=== PATIENT | male | born 1945 | race Caucasian/White ===

== ENCOUNTER → 2017-08-29 | Outpatient (CLI) | payer OTHER ==
[~2017-08-29] MED LIST: AMITRIPTYLINE H10 M3 PO; B-12500 MCG PO; EXCEDRIN CAPLE1 EACH PO; FOSAMAX 70 MG T70 MG PO; MOBIC7.5 MG PO; NORCO 5-325 TA1 EACH PO; PREDNISONE 1 MG1 M1 PO; PREDNISONE 5 MG5 MG PO; TYLENOL EXTRA500 MG PO; VITAMIN B-12500 MCG PO; tylenol PO
== END ==
LOC: M.MRI 12:55
DX: M47.892 Other spondylosis, cervical region (principal); M48.02 Spinal stenosis, cervical region; F32.9 Major depressive disorder, single episode, unspecified; M31.6 Other giant cell arteritis

== ENCOUNTER → 2017-09-06 | Outpatient (CLI) | payer OTHER ==
--- NOTE | 2017-09-12 14:40 | PAINCON ---
[address] [address] PAIN MANAGEMENT CONSULTATION Name: JON MOTT Room: [facility]#: [id number] Admission: 09/06/17 Attend Phys: Jennifer Gonzales MD Discharge: Date of : 47 Report #: [id number] THIS REPORT FOR: //name// CC: Tucker Gonzales DATE OF SERVICE: 09/06/2017 PRIMARY CARE PHYSICIAN: Tucker Tate M.D. CHIEF COMPLAINT: Pain in the neck with pulling down the side of my neck and pain in the area of the right eye. HISTORY OF PRESENT ILLNESS: The patient is a 72-year-old gentleman who has been referred to the Pain Clinic for chronic neck pain. He rates it as a 5/10. States that the pain is in the back of his head. Radiates from his neck up to the lateral portion of his head. Also, has some sensation of discomfort in the area of the eye. Denies any significant trauma to this area. He has not had surgery on his neck. Denies any recent whiplash. Notes that his pain is worse when he moves his head, sometimes way blinking his eyes. Has tried Tylenol in the past with little benefit. Pain has been quite problematic since 06/2016. Has used prednisone on a regular basis 5 mg. ALLERGIES: No known drug allergies. CURRENT MEDICATIONS: Prednisone 5 mg, Flomax 70 mg once weekly, Tylenol 500 mg 4 times per day. Medications discontinued in the past, Effexor 37.5 mg, vitamin D, folic acid, prednisone 10 mg tablets. 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 PAST SURGICAL HISTORY: Colon surgery in 12/2016, bleeding into the colon. 1979, appendectomy with peritonitis. SOCIAL HISTORY: He is retired, has not worked since 2012. Does smoke cigarettes, has smoked for 50 years. Denies use of alcoholic beverages. PAIN CLINIC ASSESSMENT: Denies history of osteoarthritis or rheumatoid arthritis. PHYSICAL EXAMINATION: VITAL SIGNS: Blood pressure 125/68, heart rate 54, respiratory rate 16, [place] [address] PAIN MANAGEMENT CONSULTATION Name: JON MOTT Room: [facility]#: [id number] Admission: 09/06/17 Attend Phys: Jennifer Gonzales MD Discharge: Date of : 47 Report #: [id number] air saturation 95%, temperature 98.2. Height 5 feet 9 inches, weight 187 pounds, BMI is 27. Pain intensity 3/10. Fall risk. The patient has not fallen in the last 3 months. Blood thinner. The patient is not on a blood thinner. Hypertension. The patient is not being treated for hypertension. Opioid therapy greater than 6 weeks. The patient is not on opioid therapy. RISK ASSESSMENT TOOL. Functional assessment tool. 1. Recreational drug use. The patient denies use of recreational drugs. 2. Tobacco: The patient has a 50-year history of tobacco 1 pack per day at this juncture. 3. Alcohol: The patient did drink on a daily basis, stopped one year ago. LABORATORY DATA: 1. MRI of the cervical spine dated 08/29/2017 reveals C1-C2 unremarkable except for narrowing of the anterior atlanto-occipital joint. 2. C2/C3 unremarkable. There is no disk bulge protrusion or stenosis. Facet joints were unremarkable. 3. C3/C4 unremarkable. There is no disk bulge protrusion or stenosis. The facet joints are unremarkable. No C4 nerve root impingement is visualized. 4. C4-C5. Disk desiccation. There is mild posterior disk bulging. There is effacement of the ventral thecal sac. The AP diameter of the central canal is mildly narrowed to 10.5 mm. There is no neuroforaminal narrowing. There is mild left-sided degenerative facet disease. 5. C5/C6 disk space narrowing. There is posterior disk bulging, which effaces the ventral thecal sac. AP diameter of the central canal is narrowed to 10.5. There is bilateral neuroforaminal nerve narrowing, right greater than left with effacement of the right nerve root. There is bilateral degenerative facet disease also present, which is also greater on the right contributing to effacement of the posterior aspect of the nerve root. 6. C6-C7 disk space narrowing. There is no disk bulge or protrusion. 7. C7-T1. Minimal posterior disk bulging. There is a left-sided intraspinal synovial cyst, which causes left lateral recess narrowing and effacement of the dorsal root of the C8 nerve root. The synovial cyst measures 4 mm transverse x 6 mm cranial caudal. PHYSICAL EXAMINATION: GENERAL: The patient is a well-developed white male. He appears his stated age. The patient is alert and oriented x 3. Affect, the patient's affect appears appropriate. Speech is fluent. HEENT: Head is normocephalic, atraumatic. Extraocular muscles intact. Hearing is within normal limits. Buccal membranes are moist. The patient has pain and discomfort to palpation in the area of the left and right occipital areas. Pain is more problematic on the right occipital area. Palpation in this area does [facility] [address] [place] [address] PAIN MANAGEMENT CONSULTATION Name: JON MOTT Room: [facility]#: [id number] Admission: 09/06/17 Attend Phys: Jennifer Gonzales MD Discharge: Date of : 47 Report #: [id number] cause worsening of pain and discomfort. The patient feels that there is similar pain with pain radiating in the area of the right eye. Left and right lateral rotation, left and right lateral flexion and extension were not really very problematic. Muscle strength is judged to be 5/5 in the major muscle groups in the upper extremity. The patient has some pain and discomfort in the area of the right levator scapulae and trapezius. Deep tendon reflexes are +1 for the biceps bilaterally. Muscles are judged to be 5/5 for the major muscle groups in the upper extremity. HEART: Regular rate. ABDOMEN: Nontender. LUNGS: Clear to auscultation without bruits. EXTREMITIES: Lower extremity is judged to be 5/5 for the major muscle groups. Muscle bulk in the lower extremities is within normal limits. The patient is able to walk, stand on his toes, stand on his heels. IMPRESSION: 1. Occipital neuralgia on the right with pain radiating to the right side of the head with some pain and discomfort and perceived in the area of the right eye. 2. History of tobacco use 50 pack years, 1 pack per day. 3. Osteoporosis. RECOMMENDATIONS: We discussed treatment options with the patient. Risks and benefits of the occipital nerve block were discussed. The patient is having pains which are not inconsistent with occipital neuralgia. Some side this patient have had suffered trauma that can then exhibits pain and discomfort in the occipital area. He denies any trauma history, but he does give a clinical picture that is consistent with occipital neuralgia. We will proceed with an injection in the occipital area on return to the Pain Clinic. We will proceed with an injection when the patient returns to the Pain Clinic. We would like to thank you for letting us participate in his care. We hope he continues to improve. <ELECTRONICALLY SIGNED> By: Jennifer Gonzales MD 09/12/17 1440 0017 [id number]. Alex Gonzales MD /[facility]
== END ==
LOC: M.PC 01:33
DX: M81.0 Age-related osteoporosis without current pathological fracture (principal); M54.2 Cervicalgia; H57.11 Ocular pain, right eye; Z87.891 Personal history of nicotine dependence

== ENCOUNTER → 2017-09-13 | Outpatient (CLI) | payer OTHER ==
--- NOTE | 2017-09-26 08:21 | PAINCON ---
[address] [address] PAIN MANAGEMENT CONSULTATION Name: JON MOTT Room: [facility].#: [id number] Admission: 09/13/17 Attend Phys: Jennifer Gonzales MD Discharge: Date of : 47 Report #: [id number] THIS REPORT FOR: //name// CC: Tucker Gonzales DATE OF SERVICE: 09/13/2017 FOLLOWUP COMPLAINT: Here for an injection for the right neck pain that is pulling on the right side and uncomfortable in the area of the right eye. FOLLOWUP HISTORY: The patient is a 72-year-old gentleman who has been seen in the pain clinic because of chronic pain. He rates the pain as 4/10 today. It has been chronic and ongoing for greater than a year. He denied any trauma to this area. Denied any history of neck pain. Denied any rewhiplash. Notes that his pain overall could be more problematic on certain days, but was constant problems since 06/2016. He has been on prednisone on a regular basis of 5 mg per day. ALLERGIES: No known drug allergies. MEDICATIONS: Prednisone 5 mg per day, Flomax 70 mg weekly, Tylenol 500 mg 4 times a day p.r.n. Discontinued medication in the past have included Effexor 37.5 mg, vitamin D, folic acid, prednisone 10 mg tablets. PAIN CLINIC ASSESSMENT: 1. The patient is not being treated for osteoarthritis or history of rheumatoid arthritis. 2. Height 5 feet 9 inches, weight 186 pounds, BMI is 27. 3. VITAL SIGNS: Blood pressure 126/72, heart rate 62, respiratory rate 16, room air saturation 96%, temperature is 98. 4. Pain intensity 10. 5. Fall risk: The patient has not fallen in the last 3 months. 6. Blood thinner: The patient is not on a blood thinner. 7. History of hypertension: The patient is not being treated for hypertension. 8. Opioid therapy: The patient is not on a chronic opioid therapy. 9. Risk assessment tool. 10. Functional assessment tool. 11. Recreational drug use: The patient denies use of recreational drugs. 12. Tobacco: The patient has a 50-year history of tobacco and smokes 1 pack of cigarettes per day at this juncture. 13. Alcohol: The patient denies drinking alcohol on a regular basis, stopped about a year ago. PHYSICAL EXAMINATION: [place] [address] PAIN MANAGEMENT CONSULTATION Name: JON MOTT Room: [facility]#: [id number] Admission: 09/13/17 Attend Phys: Jennifer Gonzales MD Discharge: Date of : 47 Report #: [id number] GENERAL: The patient is a well-developed white male. He appears his stated age. He is alert and oriented x 3. His affect is appropriate. Speech is fluent. HEENT: Head is normocephalic, atraumatic. Extraocular eye muscles intact. Hearing is within normal limits. Moist buccal membranes. Sclerae are nonicteric. NECK: Without adenopathy. Right and left occipital areas show some pain and discomfort to palpation. Palpation in the right occipital area causes a reproduction of the pain the patient has sometimes felt in the right eye area. Left and right lateral rotation, left and right lateral flexion and extension were not problematic. Muscle strength is judged to be 5/5 in the major muscle groups in the upper extremities. Deep tendon reflexes are +1 at the biceps bilaterally. HEART: Regular rate. ABDOMEN: Nontender. LUNGS: Clear to auscultation. EXTREMITIES: Lower judged to be 5/5 in the major muscle groups with symmetry and appropriate muscle bulk. The patient is able to walk on his toes and heels without problems. IMPRESSION: 1. Occipital neuralgia on the right with pain radiating to the right side of the head with some pain and discomfort perceived in the area of the right eye. 2. History of tobacco use, 25-[id number]-bveq history, 1 pack per day. 3. Osteoporosis. RECOMMENDATIONS: We discussed treatment options with the patient. Risks and benefits of occipital nerve block were again discussed. Possible complications were reviewed. They could include but are not limited to infection, increased muscle soreness, headache, worsening of pain and the patient elects to proceed. PROCEDURE NOTE: The patient was placed in the prone position. The occipital portion of his head was sterilely prepped with a chlorhexidine solution. It was allowed to dry. A 25-gauge needle was then advanced into the area of discomfort. The patient stated that this did reproduce his discomfort. Total of 8 mL of 0.5% bupivacaine and 40 mg triamcinolone was injected. The patient tolerated the procedure well. There were no complications. He was then escorted to the pain recovery room. There was no bleeding. He remained there for an appropriate amount of time. He will follow up in the future as needed. We would like to thank you for letting us participate in his care. We hope he continues to improve. <ELECTRONICALLY SIGNED> By: Jennifer Gonzales MD 09/26/17 0821 1158 [id number]. Alex Gonzales MD /PMT
== END | disposition home or self-care (01) ==
LOC: M.PC 03:52
DX: M54.81 Occipital neuralgia (principal); M81.0 Age-related osteoporosis without current pathological fracture; Z79.891 Long term (current) use of opiate analgesic; Z79.899 Other long term (current) drug therapy

== ENCOUNTER → 2017-10-18 | Outpatient (CLI) | payer OTHER ==
--- NOTE | 2017-10-24 08:18 | PAINCON ---
[address] [address] PAIN MANAGEMENT CONSULTATION Name: TIERAJON W Room: [facility].#: [id number] Admission: 10/18/17 Attend Phys: Jennifer Gonzales MD Discharge: Date of : 47 Report #: [id number] THIS REPORT FOR: //name// CC: Tucker Gonzales DATE OF SERVICE: 10/18/2017 FOLLOWUP COMPLAINT: Still having the pain in the back of the head and into the eye area. FOLLOWUP HISTORY: The patient is a 72-year-old gentleman who has been seen in the pain clinic in the past because of pain and discomfort involving the occipital area as well as some pain, which radiates into the right occipital area of his eye. This has been going on for quite a number of years. Pain has been problematic. He underwent an occipital nerve injection in the Pain Clinic. He notes that for a couple of weeks his pain was significantly better. He then noticed some recurrence of his pain. Continues to have pain and discomfort. Rates it as a 2/10 at this juncture. He states that he has been seen by a neurologist. There are scheduling a MRI. The patient does feel quite frustrated secondary to the chronicity of his pain. He has seen several doctors and feels like he has relief is temporize/elusive. He continues to take prednisone 5 mg. He states that he is taking this because it was thought to have giant cell arteritis. Has been taking Excedrin as well as B12. Continues to use Fosamax as well. Denies any bowel or bladder dysfunction. He denies any upper extremity nerve/muscular changes. He has returned to the pain clinic for evaluation. The patient has past medical history of depression. ALLERGIES: No known drug allergies. MEDICATIONS: Prednisone 5 mg a day, Fosamax 70 mg weekly, Tylenol 500 mg t.i.d. Discontinued medications have included Effexor 37.5 mg, vitamin D, folic acid, prednisone 10 mg tablets pain clinic. PAIN CLINIC ASSESSMENT: 1. The patient is not being treated for osteoarthritis and does not have a history of rheumatoid arthritis. 2. Height 5 feet 8 inches, weight 182 pounds, BMI is 26. 3. VITAL SIGNS: Blood pressure 138/61, 138/75, heart rate 75, respiratory rate 16, room air saturation 97%, temperature 98.2. 4. Pain intensity is 2/10. 5. Fall risk. The patient has not fallen in the last 3 months. 6. Blood thinner. The patient is not on a blood thinner. 7. History of hypertension. The patient is not being treated for hypertension. 8. Opioid therapy. The patient is not [place] [address] PAIN MANAGEMENT CONSULTATION Name: TIERASTEPHANTimmy Lamb Room: [facility]#: [id number] Admission: 10/18/17 Attend Phys: Jennifer Gonzales MD Discharge: Date of : 47 Report #: [id number] 9. Risk assessment tool. 10. Functional assessment tool. 11. Recreational drug use. The patient denies use of recreational drugs. 12. Tobacco. The patient has a 50-year history of tobacco and smokes 1 pack of cigarettes per day. 13. Alcohol. The patient denies use of alcohol on a regular basis. PHYSICAL EXAMINATION: GENERAL: The patient is a well-developed white male. He appears his stated age. He is alert and oriented x 3. His affect is appropriate. Speech is fluent. HEENT: Normocephalic, atraumatic. Extraocular eye muscles are intact. The patient has some soreness in the posterior area on the right occipital area. Palpation in this area does reproduce a portion of his discomfort. Buccal membranes are moist. Sclerae are nonicteric. NECK: Without adenopathy, right and left occipital areas had some slight discomfort more problematic on the right side. HEART: Regular rate, normal S1, S2. ABDOMEN: Nontender. LUNGS: Clear to auscultation without rales or rhonchi. EXTREMITIES: Judged to be 5/5 in the major muscle groups in the upper area with bulk and symmetry and without sensory changes. The patient is able to walk on his heels and toes without problems. IMPRESSION: 1. Occipital neuralgia on the right side with pain radiating to the right side of his head with some discomfort proceed beyond the right eye. 2. History of tobacco use, 77-lfnt-lonn history. 3. Osteoporosis. RECOMMENDATIONS: We discussed treatment options with the patient. At this juncture, we will proceed with another occipital injection. Risks and benefits of the procedure were again reviewed with the patient. They could include but are not limited to infection, increased muscle soreness headache, bleeding, worsening of pain. The patient elects to proceed. PROCEDURE NOTE: The patient was placed in the prone position. His neck was sterilely prepped with a Betadine solution, 5% bupivacaine, using a 25-gauge needle was then advanced into the area of the right occipital area. The patient states that this did reproduce pain. A total of 8 mL of 0.5% bupivacaine and 40 mg triamcinolone was injected. The patient tolerated the procedure well. There were no complications. He remained in the Pain Clinic for an appropriate amount of time. The patient will try Elavil, amitriptyline 10 mg 1 p.o. at bedtime and note its efficacy. We have reviewed reminded him of the possibility of becoming somewhat orthostatic with use of this medication. He should not use it if [place] [address] PAIN MANAGEMENT CONSULTATION Name: JON MOTT Room: [facility]#: [id number] Admission: 10/18/17 Attend Phys: Jennifer Gonzales MD Discharge: Date of : 47 Report #: [id number] A script for Elavil 10 mg 1 p.o. at bedtime has been written. The patient can increase this after he calls us. He will call us in 2 weeks. We may consider increasing this to 20 mg at bedtime. The patient will also take Mobic and nonsteroidal anti-inflammatory medication. We would like to thank you for letting us participate in his care. We hope he continues to improve. <ELECTRONICALLY SIGNED> By: Jennifer Gonzales MD 10/24/17 0818 1434 [id number]. Alex Gonzales MD /[facility]
== END | disposition home or self-care (01) ==
LOC: M.PC 01:55
DX: M54.81 Occipital neuralgia (principal); M81.0 Age-related osteoporosis without current pathological fracture; Z87.891 Personal history of nicotine dependence

== ENCOUNTER → 2017-12-13 | Outpatient (CLI) | payer OTHER ==
--- NOTE | 2017-12-20 15:18 | PAINCON ---
[address] [address] PAIN MANAGEMENT CONSULTATION Name: JON MOTT [id number] Admission: 12/13/17 Attend Phys: Jennifer Gonzales MD Discharge: Date of : 47 Report #: [id number] THIS REPORT FOR: //name// CC: Tucker Gonzales DATE OF SERVICE: 12/13/2017 FOLLOWUP COMPLAINT: Return of occipital headache. The pain was better after the block. FOLLOWUP HISTORY: The patient is a 72-year-old gentleman who has been followed in the pain clinic. He suffers from occipital neuralgia. He has undergone occipital nerve blocks. He noted improvement in his pain. He had some problems with GI bleed. He was hospitalized on 11/19/2017 because of this. He states that his hemoglobin level went down to 9. He has noted some improvement and said that it was greater than 9.6. He has noted some worsening of his headache with neck stiffness. He has returned to the pain clinic for an occipital nerve block. He rates his pain as a 4/10. Overall, he continues to feel somewhat weak. He states that he lost quite a bit of blood. He feels that this may have been a result of constipation and forceful straining. Overall, things are going reasonably well. He has stopped taking the Excedrin. He is not taking meloxicam. Notes that his pain is exacerbated when he is leaning his head backwards on his pillow. Discomfort when sitting in a chair. ALLERGIES: No known drug allergies. MEDICATIONS: Prednisone 5 mg daily, Fosamax 70 mg weekly, Tylenol 500 mg 1 p.o. t.i.d. Discontinued medications include Effexor 37.5 mg, vitamin D, folic acid, Mobic 7.5 mg, of amitriptyline 10 mg, Excedrin caplets. PAIN CLINIC ASSESSMENT: 1. The patient is not being treated for osteoarthritis, but does have some history of rheumatoid arthritis. 2. Height 5 feet 8 inches, weight 178 pounds, BMI is 26. 3. Vital Signs: Blood pressure 122/58, heart rate 64, respiratory rate 16, room air saturation 99, temperature 98.3. Pain intensity 10/02. 4. Fall risk. The patient has not fallen in the last 3 months. 5. Blood thinner. The patient is not on a blood thinning medication. 6. Hypertension. The patient has not been treated for hypertension. 7. Opioid therapy. The patient is not on a chronic opioid therapy regimen. 8. Risk assessment tool. 9. Functional assessment tool. 10. Recreational drug use. The patient denies use of recreational drugs. 11. Tobacco: The patient has a 50-year history of tobacco, smokes 1 pack of [facility] [address] [place] [address] PAIN MANAGEMENT CONSULTATION Name: JON MOTT Room: [facility]#: [id number] Admission: 12/13/17 Attend Phys: Jennifer Gonzales MD Discharge: Date of : 47 Report #: [id number] cigarettes per day. 12. Alcohol: The patient denies use of alcoholic beverages on a regular basis. PHYSICAL EXAMINATION: GENERAL: The patient is a well-developed, well-nourished white male. He appears his stated age. He is alert and oriented x 3. His affect is appropriate. Speech is fluent. HEENT: Normocephalic, atraumatic. Extraocular eye muscles intact. Sclerae nonicteric. The patient does have some redness in the medial canthal area of his right eye. He states that this improves after the occipital nerve block. NECK: Without adenopathy, has some right as well as left occipital discomfort. Right side is most problematic at this juncture. HEART: Regular rate, normal S1, S2. ABDOMEN: Nontender. LUNGS: Clear to auscultation without rales or rhonchi. EXTREMITIES: Upper extremity judged to be 5/5 for the major muscle groups with symmetry and without sensory change. Lower extremity 5/5 for the muscle bulk without neurologic complaints. IMPRESSION: 1. Occipital neuralgia on the right side with pain radiating to the right side of his head with some discomfort beyond the right eye. 2. History of tobacco use, 17-ypuy-ctxy history. 3. Osteoporosis. 4. Recent GI bleed, first GI bleed approximately 1 year ago. RECOMMENDATIONS: We discussed treatment options with the patient. Risks and benefits of an occipital nerve block were reviewed. They include, but are not limited to infection, increased muscle soreness, headache, bleeding, worsening of pain, no improvement in pain. The patient is aware of the risks and would like to proceed with treatment of a right occipital block. PROCEDURE: The patient was placed in the prone position. He was in the treatment area. His neck was sterilely prepped with chlorhexidine solution. The 0.25% bupivacaine using a 25-gauge needle with 40 mg triamcinolone was used to inject the right occipital area. The patient states after palpation this was the area of discomfort. Total of 8 mL 0.25% bupivacaine with 40 mg triamcinolone was injected. The patient tolerated the procedure well. There were no complications. He remained in the pain clinic for an appropriate amount of time. He will follow up in the future as needed. We will continue to monitor for possible GI bleeding. We would like to thank you for letting us participate in his care. We hope he continues to improve. <ELECTRONICALLY SIGNED> By: Jennifer Gonzales MD 12/20/17 1518 1440 1924N. Alex Gonzales MD /[facility]
== END | disposition home or self-care (01) ==
LOC: M.PC 04:00
DX: M54.81 Occipital neuralgia (principal); G89.29 Other chronic pain; M81.0 Age-related osteoporosis without current pathological fracture; Z87.891 Personal history of nicotine dependence; Z87.19 Personal history of other diseases of the digestive system; Z79.899 Other long term (current) drug therapy; Z98.890 Other specified postprocedural states

== ENCOUNTER → 2018-01-15 | Outpatient (CLI) | payer OTHER ==
--- NOTE | 2018-01-23 14:16 | PAINCON ---
[address] [address] PAIN MANAGEMENT CONSULTATION Name: JON MOTT Room: [facility] Khris#: [id number] Admission: 01/15/18 Attend Phys: Jennifer Gonzales MD Discharge: Date of : 49 Report #: [id number] THIS REPORT FOR: //name// CC: Tucker Gonzales DATE OF SERVICE: 01/15/2018 CHIEF COMPLAINT: Return of the occipital headache. It improved after the injections. FOLLOWUP HISTORY: The patient is a 72-year-old gentleman who has been followed in the pain clinic because of occipital neuralgia. He has undergone occipital nerve blocks. He finds that these improve his pain by 100%. He has noticed a worsening of pain and discomfort. He does have a history of GI bleed. He has not had problems with this in a while. He states that he has some problem with a tag in his right ear. He is not sure whether or not this has any bearing on his pain and discomfort in the occipital area. He also has noted some problem with a lump in his leg. He states that he is being evaluated with a CT/possible MRI for evaluation of this item. In order to undergo the procedure, he needs to be off his steroid medication. He feels that the occipital pain improves after each injection. He would like to proceed with another injection. He rates it as a 5-6 at this juncture. He has received 100% improvement after the injections in the past. ALLERGIES: No known drug allergies. MEDICATIONS: Prednisone 5 mg daily, Flomax 70 mg weekly, Tylenol 500 mg 1 p.o. t.i.d.. Medications, which have been discontinued include Effexor 37.5 mg, vitamin D, folic acid, Mobic, amitriptyline 10 mg, and Excedrin caplets. PAIN CLINIC ASSESSMENT: 1. The patient is not being treated for osteoarthritis. He does have some history of rheumatoid arthritis. 2. Height 5 feet 8 inches, weight 174 pounds, BMI is 25.8. 3. Vital signs: Blood pressure 124/73, heart rate 71, respiratory rate 16, room air saturation 97%, temperature 98.4. 4. Pain intensity 5-6/10. 5. Fall risk. The patient has not fallen in the past 3 months. 6. Blood thinner. The patient is not on a blood thinning medication. 7. Hypertension. The patient has not been treated for hypertension. 8. Opioid therapy. The patient is not on a chronic opioid medication regimen. 9. Risk assessment tool, low. 10. Functional assessment tool. 11. Recreational drug use. The patient denies use of recreational drugs. 12. Tobacco: The patient has a 50-year history of tobacco, smokes 1 pack of [facility] [address] [place] [address] PAIN MANAGEMENT CONSULTATION Name: TIERASTEPHANTimmy Lamb Room: [facility]#: [id number] Admission: 01/15/18 Attend Phys: Jennifer Gonzales MD Discharge: Date of : 47 Report #: [id number] cigarettes per day at this juncture. 13. Alcohol: The patient denies use of alcoholic beverages on a regular basis. PHYSICAL EXAMINATION: GENERAL: The patient is a well-developed, well-nourished white male. He appears his stated age. He is alert and oriented x 3. His affect is appropriate. Speech is fluent. HEENT: Normocephalic, atraumatic. Extraocular eye muscles intact. Sclerae nonicteric. The patient has pain and discomfort, which radiates across the right temporal area, posterior portion of his right eye and when the right occipital area was palpated. Neck: Without JVD, adenopathy, or bruits. HEART: Regular rate. S1, S2. ABDOMEN: Nontender. LUNGS: Clear to auscultation without rales or rhonchi. EXTREMITIES: Upper extremities, judged to be 5/5 for the major muscle groups without sensory change. Lower extremities 5/5 for the muscle. Lower extremities, the patient has some complaint of a nodule in his left thigh area. IMPRESSION: 1. Occipital neuralgia on the right, improved with occipital blocks with 100% resolution of pain. 2. History of tobacco, 50-year smoking history. 3. History of osteoporosis. 4. History of gastrointestinal bleed. 5. Tumor/nodule in the right leg being evaluated by primary physician. RECOMMENDATIONS: We discussed treatment options with the patient. Risks and benefits of the procedure were again reviewed. Possible complications, which could include but are not limited to infection, increased muscle soreness, worsening of the symptoms, no improvement in symptoms. The patient elects to proceed. PROCEDURE NOTE: The patient was placed in the prone position. His neck was sterilely prepped with a chlorhexidine solution, which was allowed to dry. The right occipital area was palpated. The patient notes pain and discomfort in the occipital area. A 25-gauge needle was then advanced into the area of discomfort. A total of 6 mL of 0.5% bupivacaine and 40 mg triamcinolone was injected. The patient tolerated the procedure well. There were no complications. He remained in the pain clinic for an appropriate amount of time. He will follow up in the future as needed. He may be a candidate for Botox treatment. We will investigate the possibility of this in the future. <ELECTRONICALLY SIGNED> By: Jennifer Gonzales MD 01/23/18 1416 1101 1455N. Alex Goznales MD /nt
== END | disposition home or self-care (01) ==
LOC: M.PC 04:44
DX: M54.81 Occipital neuralgia (principal); G89.29 Other chronic pain; F17.210 Nicotine dependence, cigarettes, uncomplicated; Z98.890 Other specified postprocedural states; Z87.19 Personal history of other diseases of the digestive system; Z87.310 Personal history of (healed) osteoporosis fracture; Z79.899 Other long term (current) drug therapy

== ENCOUNTER → 2018-02-07 | Outpatient (CLI) | payer OTHER ==
--- NOTE | 2018-03-01 17:38 | PAINCON ---
[address] [address] PAIN MANAGEMENT CONSULTATION Name: JON MOTT Room: [facility] Khris#: [id number] Admission: 02/07/18 Attend Phys: Jennifer Gonzales MD Discharge: Date of : 49 Report #: [id number] THIS REPORT FOR: //name// CC: Tucker Gonzales DATE OF SERVICE: 02/07/2018 FOLLOWUP HISTORY: The right side after the injection is about 99% better. Left side has still some areas of soreness. I would like to have another injection. The patient is a 72-year-old gentleman who has been followed in the pain clinic because of occipital neuralgia. He has undergone occipital nerve blocks. He has noted that these have been quite helpful and improved his pain by about 100%. Over the last few weeks, he has noted a recurrence of pain and discomfort in the left side. Right side continues to be about 99% improved. He would like to undergo another injection in the left side. He finds that these have been quite beneficial in decreasing the amount of headaches that he has been experiencing. He has had no complication from the injections. He continues to take Tylenol and has used prednisone in the past. He has returned to the pain clinic with a desire of undergoing a left occipital nerve block to help with the chronic abdominal pain that he usually feels. He rates his pain as a 2 today. Oftentimes, it can rise to a level of 6. ALLERGIES: No known drug allergies. CURRENT MEDICATIONS: Prednisone 5 mg daily, Fosamax 70 mg weekly, Tylenol 500 mg t.i.d., medications have been discontinued include Effexor 37.5 mg, folic acid, vitamin D, Mobic, amitriptyline 10 mg, Excedrin caplets. PAIN CLINIC ASSESSMENT: 1. The patient is not being treated for osteoarthritis. He does have some history of rheumatoid arthritis. 2. Height 5 feet 8 inches, weight 169 pounds, BMI is 25. 3. Vital signs: Blood pressure 132/71, heart rate 71, respiratory rate 16, room air saturation 97%, temperature 98.1. Pain score 2/10 at this juncture. 4. Fall risk. The patient has not fallen in the last 3 months. 5. Blood thinner. The patient is not on a blood thinning medication. 6. Hypertension. The patient is not being treated for hypertension. 7. Opioid therapy. The patient is not on a chronic opioid medication regimen. 8. Risk assessment tool, low for use of opioid. 9. Functional assessment tool. 10. Recreational drug use. The patient denies use of recreational drugs. 11. Tobacco: The patient has a 50-year history of tobacco and smokes 1 pack of cigarettes per day at this juncture. 12. Alcohol: The patient denies use of alcoholic beverages [place] [address] PAIN MANAGEMENT CONSULTATION Name: STEPHAN MOTTTimmy Lamb Room: [facility]#: [id number] Admission: 02/07/18 Attend Phys: Jennifer Gonzales MD Discharge: Date of : 49 Report #: [id number] PHYSICAL EXAMINATION: GENERAL: The patient is a well-developed, well-nourished white male. He appears his stated age. He is alert and oriented x 3. His affect is appropriate. Speech is fluent. HEENT: Normocephalic, atraumatic. Extraocular muscles intact. Sclerae nonicteric. The patient has some pain and discomfort in the back of his occipital area with radiation to the left temporal area and involvement of his left eye when this area was palpated. NECK: Without JVD, adenopathy, or bruits. HEART: Regular rate. S1, S2. ABDOMEN: Nontender. LUNGS: Clear to auscultation without rales or rhonchi. EXTREMITIES: Upper extremity, judged to be 5/5 for the major muscle groups in the upper extremity. Sensory is within normal limits. Lower extremity, sensory within normal limits. Muscle strength 5/5 for the major muscle groups. The patient does have some complaint of some discomfort on his left thigh area. IMPRESSION: 1. Left occipital neuralgia. Right improved after the injection by 100%. 2. History of tobacco 50 years smoking history. 3. History of osteoporosis. 4. History of gastritis and gastrointestinal bleed. 5. Tumor/nodule in the right leg being evaluated by primary physician. RECOMMENDATIONS: We discussed treatment options with the patient. Risks and benefits of an occipital neuralgia, occipital injection were again discussed. Possible complications of the procedure, which could include infection, increased muscle soreness, no improvement in pain, worsening of pain, seizure were explained. The patient elects to proceed. PROCEDURE NOTE: The patient was placed in the prone position. His neck was then sterilely prepped with a chlorhexidine solution, which was allowed to dry. After appropriate placement and the trigger point was identified. A 25-gauge needle was then advanced into the area of discomfort. The patient states that this did reproduce his discomfort. A total of 8 and 8 mL of 0.5% bupivacaine and 40 mg triamcinolone was injected. The patient tolerated the procedure well. He remained in the pain clinic for an appropriate amount of time. There was no bleeding. He will follow up in the future as needed. We would like to thank you for letting us participate in his spare in his care. Hopefully, he continues to improve. <ELECTRONICALLY SIGNED> By: Jennifer Gonzales MD 03/01/18 1738 1504 1818N. Alex Gonzales MD /nt
== END | disposition home or self-care (01) ==
LOC: M.PC 05:01
DX: M54.81 Occipital neuralgia (principal)

== ENCOUNTER 2018-02-20 10:12 | Emergency (ER) | payer OTHER ==
[~2018-02-20] VITALS: Ht 172.7 cm; Wt 73.0 kg
[~2018-02-20 10:12] MED LIST changes: -NORCO 5-325 TA1 EACH PO; -VITAMIN B-12500 MCG PO
[2018-02-20 10:56] LABS: CALCIUM 9.3 mg/dL (8.5-10.1); CREATININE 0.9 mg/dL (0.6-1.3); POTASSIUM 4.1 mmol/L (3.5-5.1)
[2018-02-20 10:58] LABS: URIC ACID* 4.5 mg/dL (2.6-7.2)
[2018-02-20] MEDS ORDERED: NORCO 5-325 TA1 EACH PO (11:31)
[2018-02-20 11:41] VITALS: BP 131/71
[2018-02-28] MEDS ORDERED: VITAMIN B-12500 MCG PO (15:18)
[2018-02-28] MEDS ORDERED: EXCEDRIN CAPLE1 EACH PO (15:18)
[2018-03-28] MEDS ORDERED: NORCO 5-325 TA1 EACH PO (08:25)
== END 2018-02-20 11:42 | disposition home or self-care (01) ==
LOC: M.ERS 10:12
PROVIDERS: Emergency Medicine Emergency Medical Services
DX: M25.521 Pain in right elbow (principal); R22.31 Localized swelling, mass and lump, right upper limb; G89.29 Other chronic pain; R51 Headache; F17.210 Nicotine dependence, cigarettes, uncomplicated

== ENCOUNTER → 2018-02-21 | Outpatient (CLI) | payer OTHER ==
[~2018-02-21] MED LIST changes: +NORCO 5-325 TA1 EACH PO; +VITAMIN B-12500 MCG PO
== END ==
LOC: M.RAD 14:37
DX: M25.421 Effusion, right elbow (principal); M77.11 Lateral epicondylitis, right elbow

== ENCOUNTER → 2018-02-28 | Outpatient (CLI) | payer OTHER ==
--- NOTE | 2018-04-08 10:00 | PAINCON ---
[address] [address] PAIN MANAGEMENT CONSULTATION Name: STEPHAN MOTTTimmy Lamb Room: [facility].#: [id number] Admission: 02/28/18 Attend Phys: Jennifer Gonzales MD Discharge: Date of : 49 Report #: [id number] THIS REPORT FOR: //name// CC: Tucker Gonzales DATE OF SERVICE: 02/28/2018 CHIEF COMPLAINT: Occipital head pain. HISTORY OF PRESENT ILLNESS: The patient is a 72-year-old gentleman who has been followed in the Pain Clinic because of chronic episodes of occipital neuralgia. He has undergone injections without occipital blocks and gleaned benefits from these. He returns today indicating that his pain has overall been helped, but he is having a recurrence of pain, particularly today in the left occipital area. He would like to proceed with a trigger point injection to help decrease his chronic pain and discomfort. He has had no complication from the last injection. He did note some improvement in his headache pain. Overall, he gets greater than 90% improvement after the injections. ALLERGIES: No known drug allergies. MEDICATIONS: Current medications are prednisone 5 mg, Flomax 70 mg weekly, and Tylenol 500 mg t.i.d. Medications discontinued have included Effexor 37.5, folic acid, vitamin D, Mobic, amitriptyline 10 mg, and Excedrin caplets. PAIN CLINIC ASSESSMENT: 1. The patient is not being treated for osteoarthritis. He does have some history of rheumatoid arthritis with involvement of his elbow. 2. Height 5 feet 8 inches, weight 169 pounds, BMI is 25. 3. Vital signs: Blood pressure 132/69, heart rate 70, respirations 16, room air saturation 96%, temperature 98. 4. Pain score: 4/6. 5. Fall risk: The patient has not fallen in the last 3 months. 6. Blood thinner: The patient is not on a blood thinning medication. 7. Hypertension: The patient is not being treated for hypertension. 8. Opioid therapy: The patient is not on a chronic opioid medication regimen. 9. Risk assessment tool low for opioid use. 10. Functional assessment tool. 11. Recreational drug use: The patient denies use of recreational drugs. 12. Tobacco: The patient has a 50-year history of tobacco and continues to smoke 1 pack of cigarettes per day. 13. Alcohol: The patient denies use of alcoholic beverages. PHYSICAL EXAMINATION: [place] [address] PAIN MANAGEMENT CONSULTATION Name: JON MOTT Room: [facility]#: [id number] Admission: 02/28/18 Attend Phys: Jennifer Gonzales MD Discharge: Date of : 49 Report #: [id number] GENERAL: The patient is a well-developed, well-nourished white male. He appears his stated age. He is alert and oriented x 3. His affect is appropriate. Speech is fluent. HEENT: Normocephalic, atraumatic. Extraocular eye muscles intact. Sclerae nonicteric. The patient does have some pain and discomfort in the left occipital area. Palpation does reproduce pain and discomfort in his lateral temporal area. Also, he notes some discomfort in the area of his left eye. NECK: Without JVD, adenopathy or bruits. HEART: Regular rate. S1 and S2. ABDOMEN: Nontender. LUNGS: Clear to auscultation without rales or rhonchi. MUSCULOSKELETAL: Upper extremity strength is judged to be 5/5 for the major muscle groups in the upper extremity. Sensory is within normal limits. Lower extremity sensory is within normal limits. Muscle strength in the lower extremity is 5/5 for the major muscle groups. The patient has some discomfort in the left thigh area. IMPRESSION: 1. Left occipital neuralgia. 2. History of tobacco, [id number] smoking. 3. Osteoporosis. 4. History of gastritis and gastrointestinal bleed. 5. Tumor/nodule removed from right leg by primary care physician. 6. Onset of increased pain and discomfort involving the elbow. RECOMMENDATIONS: We discussed treatment options with the patient. Risks and benefits of an occipital nerve block were discussed. They include but are not limited to infection, increased muscle soreness, worsening of pain, no improvement in pain, seizures from injection of the medication. The patient elects to proceed. PROCEDURE NOTE: The patient was placed in the prone position. A pillow was placed under his shoulders to improve positioning. His neck was sterilely prepped with a chlorhexidine solution, this was allowed to dry. The occipital nerve area was identified. Near the greater occipital nerve, a 25-gauge needle was advanced. The patient states this reproduced his discomfort. Total of 40 mg triamcinolone and 8 mL of 0.5% bupivacaine was injected. The patient tolerated the procedure well. There were no complications. He remained in the Pain Clinic for an appropriate amount of time. His pain decreased. The patient will call us if he has any concerns. [address] [address] PAIN MANAGEMENT CONSULTATION Name: JON MOTT Room: [facility] DIANE Hernandez.#: [id number] Admission: 02/28/18 Attend Phys: Jennifer Gonzales MD Discharge: Date of : 49 Report #: [id number] I would like to thank you for letting us participate in his care. We hope he continues to improve. <ELECTRONICALLY SIGNED> By: Jennifer Gonzales MD 04/08/18 1000 [id number] 0507N. Alex Gonzales MD /nt
== END ==
LOC: M.PC 04:41
DX: M54.81 Occipital neuralgia (principal); Z79.899 Other long term (current) drug therapy

== ENCOUNTER → 2018-03-28 | Outpatient (CLI) | payer OTHER ==
--- NOTE | 2018-05-08 15:49 | PAINCON ---
[address] [address] PAIN MANAGEMENT CONSULTATION Name: JON MOTT Room: [facility].#: [id number] Admission: 03/28/18 Attend Phys: Jennifer Gonzales MD Discharge: Date of : 49 Report #: [id number] THIS REPORT FOR: //name// CC: Tucker Gonzales DATE OF SERVICE: 03/28/2018 PRIMARY CARE PHYSICIAN: Tucker Tate M.D. CHIEF COMPLAINT: Left occipital neuralgia pain. HISTORY OF PRESENT ILLNESS: The patient is a 72-year-old gentleman who has been followed in the pain clinic because of chronic episodes of occipital neuralgia. He has undergone injections to the occipital area and occipital nerve. Finds that he has gleaned benefits from these. They would not last as long as he would like. At this juncture, he is having pain and discomfort, which is quite problematic on the left side. He notes a significant amount of benefit from this. He has returned today for the injection. He notices greater than 90% improvement after the injections. ALLERGIES: No known drug allergies. CURRENT MEDICATIONS: Prednisone 5 mg, Fosamax 70 mg weekly, Tylenol 500 mg t.i.d. Medications discontinued are Effexor 37.5 mg, folic acid, vitamin D, Mobic, amitriptyline 10 mg, Excedrin caplets. PAIN CLINIC ASSESSMENT AND PQRS: 1. The patient is not being treated for osteoarthritis. He does have a history of rheumatoid arthritis, which involves his elbow. 2. Height 5 feet 8 inches, weight 165 pounds, BMI is 24. 3. Vital Signs: Blood pressure 133/78, heart rate 74, respiratory rate 16, room air saturation 98%, temperature 98.2, and pain intensity 6-7/10. IMPRESSION: 1. Fall risk. The patient has not fallen in the last 3 months. 2. Blood thinner. The patient is not on a blood thinning medication. 3. Hypertension. The patient is not being treated for hypertension. 4. Opioid therapy. The patient has not been treated for chronic opioid therapy. 5. Risk assessment tool, low use for opioids. 6. Functional assessment tool. 7. Recreational drug use. The patient denies use of recreational drugs. 8. Tobacco: The patient has smoked for the last 50 years. Continues to smoke 1 pack of cigarettes per day. We discussed the benefits [place] [address] PAIN MANAGEMENT CONSULTATION Name: JON MOTT Room: [facility]#: [id number] Admission: 03/28/18 Attend Phys: Jennifer Gonzales MD Discharge: Date of : 49 Report #: [id number] 9. Alcohol: The patient denies frequent use of alcoholic beverages. PHYSICAL EXAMINATION: GENERAL: The patient is a well-developed, well-nourished, white male. He appears his stated age. He is alert and oriented x 3. His affect is appropriate. Speech is fluent. HEENT: Normocephalic, atraumatic. Extraocular muscles intact. Sclerae nonicteric. The patient has some pain and discomfort in the left as well as the right occipital areas. Palpation in these areas reproduces pain and discomfort. Notes some pain that seems to emanate in the post-temporal area and behind his left eye. NECK: Without JVD or adenopathy. The patient without bruits. HEART: Regular rate. S1, S2. ABDOMEN: Nontender. Bowel sounds present. LUNGS: Clear to auscultation without rhonchi or rales. MUSCULOSKELETAL: Upper extremity muscle strength judged to be 5/5 for the major muscle groups in the upper extremity. Sensory is within normal limits. Lower extremity sensory within normal limits. Muscle strength in the lower extremity 5/5 for the major muscle groups. The patient has had some pain in the left thigh area. IMPRESSION: 1. Left and right occipital neuralgia. 2. History of tobacco use 50 pack years. 3. Osteoporosis. 4. History of gastritis and gastrointestinal bleed. 5. Tumor/nodule removed from the right leg by primary care physician. 6. Onset of increased pain and discomfort involving the elbow. RECOMMENDATIONS: We discussed treatment options with the patient. Risks and benefits of an injection were again discussed. Possible complications of the procedure were reviewed. They could include but are not limited to infection, worsening of pain, no improvement in pain and the possibility of infection. The patient elects to proceed. PROCEDURE NOTE: The patient was placed in the prone position. His left and right occipital area was sterilely prepped with a chlorhexidine solution and allowed to dry. The left occipital area was identified. A 25-gauge needle was placed in the occipital area of the greater occipital nerve. Aspiration did not note any pain. Total of 8 mL of 0.5% bupivacaine and 40 mg triamcinolone was injected. The contralateral side was treated in a like fashion. A 25-gauge needle was then advanced to the area of the greater occipital nerve. A total of 8 mL of 0.5% bupivacaine was infiltrated. A total of 40 mg triamcinolone was injected. The patient tolerated the procedure well. There were no complications. He remained in the pain clinic for an appropriate amount of time. He will follow up in the future as needed. [place] [address] PAIN MANAGEMENT CONSULTATION Name: JON MOTT Room: [facility]#: [id number] Admission: 03/28/18 Attend Phys: Jennifer Gonzales MD Discharge: Date of : 49 Report #: [id number] possibility of Botox in the future. We would like to thank you for letting us participate in his care. We hope he continues to improve. <ELECTRONICALLY SIGNED> By: Jennifer Gonzales MD 05/08/18 1549 2058 0159N. Alex Gonzales MD /PMT
== END | disposition home or self-care (01) ==
LOC: M.PC 04:48
DX: M54.81 Occipital neuralgia (principal); M81.0 Age-related osteoporosis without current pathological fracture; G89.29 Other chronic pain; I10 Essential (primary) hypertension; F17.210 Nicotine dependence, cigarettes, uncomplicated; Z87.19 Personal history of other diseases of the digestive system; Z98.890 Other specified postprocedural states; Z79.899 Other long term (current) drug therapy

== ENCOUNTER → 2018-06-20 | Outpatient (CLI) | payer OTHER | LOC: M.ULTRA 10:07 | DX: N50.819 Testicular pain, unspecified (principal); K28.4 Chronic or unspecified gastrojejunal ulcer with hemorrhage; M31.6 Other giant cell arteritis; G44.52 New daily persistent headache (NDPH); N45.1 Epididymitis ==

== ENCOUNTER → 2018-10-15 | Outpatient (CLI) | payer OTHER ==
[~2018-10-15] MED LIST changes: +TRAMADOL 50 MG50 MG PO
--- NOTE | ~2018-10-15 | PAINCON ---
[address] [address] PAIN MANAGEMENT CONSULTATION Name: TIERAOJN W [facility] [id number] Admission: 10/15/18 Attend Phys: Jennifer Gonzales MD Discharge: Date of : 49 Report #: [id number] THIS REPORT FOR: //name// CC: Tucker Gonzales DATE OF SERVICE: 10/15/2018 CHIEF COMPLAINT: Return of the pain in the back of the head. I went to see a doctor, but they were behind, did not feel like they were very organized. I elected not to have the Botox injection there. I have returned to the pain clinic for another injection. They have been helpful. HISTORY: The patient is a 73-year-old gentleman, who has been followed in the pain clinic because of chronic occipital neuralgia. He has undergone an injection to the occipital areas and finds that they have been beneficial. He returns today with a desire to undergo another series of injections. CURRENT MEDICATIONS: Prednisone 5 mg, Fosamax 70 mg weekly, Tylenol 500 mg t.i.d. Medications discontinued the past have been Effexor 37.5, folic acid, vitamin D, Mobic, amitriptyline 10 mg as well as Excedrin caplets. ALLERGIES: No known drug allergies. PAIN CLINIC ASSESSMENT AND PQRS: 1. The patient is not being treated for osteoarthritis. He does have a history of rheumatoid arthritis, which involves his elbows. 2. Pain intensity is 7/10. 3. Fall risk. The patient has not fallen in the last 3 months. 4. Blood thinner. The patient is not on a blood thinning medication. 5. Hypertension. The patient is not being treated for hypertension. 6. Opioids greater than 6 weeks. The patient is not taking opioid medication on a regular basis. 7. Risk assessment tool, low for opioid use. 8. Functional assessment tool. 9. Recreational drug use. The patient denies use of recreational drugs. 10. Tobacco: The patient denies use of tobacco. 11. Alcohol: The patient has smoked for the past 50 years. He continues to smoke 1 pack of cigarettes per day. We discussed the benefits of smoking cessation. PHYSICAL EXAMINATION: GENERAL: The patient is a well-developed, well-nourished white male. He appears his stated age. He is alert and oriented x 3. His affect is appropriate. Speech is fluent. Height o 5 feet 8 inches, weight is 163 pounds, and BMI is 24.1. [place] [address] PAIN MANAGEMENT CONSULTATION Name: JON MOTT Room: [facility]#: [id number] Admission: 10/15/18 Attend Phys: Jennifer Gonzales MD Discharge: Date of : 47 Report #: [id number] VITAL SIGNS: Blood pressure is 112/58, heart rate is 64, respiratory rate is 16, room air saturation is 96%, and temperature is 98.1. HEENT: Normocephalic, atraumatic. Extraocular eye muscles intact. Sclerae nonicteric. Mucous membranes are moist. NECK: Without adenopathy or JVD. The patient has a perception of some pain and discomfort, which is worse behind his left eye and some involving the right eye. Palpation of the posterior and occipital area of his head reproduced and exacerbate the pain and discomfort. NECK: Without adenopathy or JVD. No bruits. HEART: Regular rate. S1, S2. ABDOMEN: Nontender. Bowel sounds present. LUNGS: Clear to auscultation without rhonchi or rales. MUSCULOSKELETAL: Upper extremity is judged to be 5-/5 for the major muscle groups in the upper extremity. Sensory in the arms within normal limits. Lower extremity muscle strength is 5/5 for the major muscle groups in the lower extremity. IMPRESSION: 1. Left and right occipital neuralgia. 2. History of tobacco use, 65-vlqm-vhqg history. 3. Osteoporosis. 4. History of gastritis and gastrointestinal bleeding. 5. Tumor/nodule removed from his right leg by primary care physician. 6. Onset of increased pain and discomfort in his elbows. RECOMMENDATIONS: We have discussed treatment options with the patient. Risks and benefits of occipital injections were again discussed. They include but are not limited to worsening of pain, bleeding, nerve damage, infection, and the patient elects to proceed. PROCEDURE NOTE: The patient was taken to the procedure area. He was then placed in the prone position. His neck was sterilely prepped and the occipital area with a chlorhexidine solution allowed to dry. A 25-gauge needle was then placed in the area of the left greater occipital nerve area. Palpation in this area reproduced the patient's discomfort. Aspiration was negative. A total of 6 mL of 0.5% bupivacaine and 40 mg of triamcinolone was injected on the right side. The contralateral left occipital area was identified. The left greater trochanteric nerve was identified. Aspiration was negative. A total of 6 mL of 0.5% bupivacaine and 40 mg of triamcinolone was injected. The patient tolerated the procedure well. There were no complications. He remained in the pain clinic for an appropriate amount of time. [facility] [address] [address] PAIN MANAGEMENT CONSULTATION Name: JON MOTT Room: [facility]#: [id number] Admission: 10/15/18 Attend Phys: Jennifer Gonzales MD Discharge: Date of : 47 Report #: [id number] We would like to thank you for letting us to participate in his care. We hope he continues to improve. By: [id number]. Alex Gonzales MD /PMT
== END | disposition home or self-care (01) ==
LOC: M.PC 04:54
DX: M54.81 Occipital neuralgia (principal); G89.29 Other chronic pain; M81.0 Age-related osteoporosis without current pathological fracture; M25.521 Pain in right elbow; M25.522 Pain in left elbow; F17.210 Nicotine dependence, cigarettes, uncomplicated; Z87.19 Personal history of other diseases of the digestive system; Z79.891 Long term (current) use of opiate analgesic; Z98.890 Other specified postprocedural states; Z79.899 Other long term (current) drug therapy

== ENCOUNTER → 2018-11-21 | Outpatient (CLI) | payer OTHER ==
[~2018-11-21] MED LIST changes: +LYRICA 50 MG50 MG PO
--- NOTE | ~2018-11-21 | PAINCON ---
[address] [address] PAIN MANAGEMENT CONSULTATION Name: JON MOTT Room: [facility] DavidSilvia#: [id number] Admission: 11/21/18 Attend Phys: Jennifer Gonzales MD Discharge: Date of : 47 Report #: [id number] THIS REPORT FOR: //name// CC: Tucker Gonzales DATE OF SERVICE: 11/21/2018 CHIEF COMPLAINT: "The injection lasted 2-3 weeks with almost no pain. I have noted some return of the pain." HISTORY: The patient is a 73-year-old gentleman who has been followed in the Pain Clinic because of occipital neuralgia. He has undergone injections in the past and found those quite helpful. He returns today because of the pain being quite problematic. He states that the pain wakes him up in the morning. He gets more pain as the day progresses. At this juncture, he rates it as a 3-4/10. Most of his pain occupies the right side. He has tried tramadol in the past. He is not sure how much this is helpful. He has used opioid medications in the past and these caused some fluttering of his heart; he cannot quite remember, which medication was at fault. He has returned today with a desire to undergo an occipital nerve block because of chronic pain and increasing discomfort he is experiencing. He has gleaned 100% improvement after the blocks for a number of weeks. ALLERGIES: No known drug allergies. CURRENT MEDICATIONS: Prednisone 5 mg, Fosamax 70 mg weekly, Tylenol 500 mg t.i.d. Medications which have been used but discontinued are Effexor 3.75 mg, folic acid, vitamin D, Mobic, amitriptyline, Excedrin caplets. PAIN CLINIC ASSESSMENT/PQRS: 1. The patient is not being treated for osteoarthritis. He does have a history of rheumatoid arthritis. He notes the involvement of his elbows. 2. Pain intensity is 3-4/10 at this point. 3. Fall risk: The patient has not fallen in the last 3 months. 4. Hypertension: The patient is not being treated for hypertension. 5. Opioids greater than 6 weeks: The patient is not taking opioid medication on a regular basis. 6. Risk assessment tool: Low for opioid use. 7. Functional assessment tool. 8. Recreational drug use: The patient denies use of recreational drugs. 9. Tobacco: The patient admits to tobacco smoking for 50 years. He continues to smoke 1 pack of cigarettes per day. We discussed the benefits of smoking cessation. 10. Alcohol: The patient does not drink [place] [address] PAIN MANAGEMENT CONSULTATION Name: JON MOTT Room: [facility]#: [id number] Admission: 11/21/18 Attend Phys: Jennifer Gonzales MD Discharge: Date of : 47 Report #: [id number] PHYSICAL EXAMINATION: GENERAL: The patient is a well-developed, well-nourished white male. He appears his stated age of 73 years. He is alert and oriented x 3. His affect is appropriate. Speech is fluent. HEENT: Normocephalic, atraumatic. Extraocular eye muscles intact. Sclerae nonicteric. Mucous membranes are moist. The patient has pain and discomfort in the left and right occipital areas. Right occipital area is most problematic. Palpation in this area can cause worsening of pain. The patient states that he notes if he sits in a chair and his head is propped in a certain position, this puts pressure on the occipital nerve area and can increase his pain. He notes that there is a burning type of numbness and tingling sensation in the posterior portion of his head in the area of the greater occipital nerve. He is able to reproduce this discomfort by pressing in this area with his hand. NECK: Without adenopathy or JVD. HEART: Regular rate. ABDOMEN: Nontender. Bowel sounds present. MUSCULOSKELETAL: Upper extremity muscle strength is judged to be 5-/5 for the major muscle groups. Lower extremity muscle strength 5/5. The patient is without significant scoliosis, kyphosis, or lordosis. IMPRESSION: 1. Left and right occipital neuralgia, right more problematic today. 2. History of tobacco use, 50-pack a year. 3. Osteoporosis. 4. History of gastritis and gastrointestinal bleeding. 5. Tumor/nodule removed from right leg by primary care. 6. Onset of increased pain and discomfort in his elbows. RECOMMENDATIONS: We discussed treatment options with the patient. The patient is having pain and discomfort in the occipital area. He gleans good relief from the injections. He has received 100% improvement for about 3 weeks after the injection. He has considered Botox injections. The patient went to a physician's office to undergo Botox treatment. He felt that the office was somewhat disorganized and he did not feel comfortable with the office. He therefore left and declined Botox injections. We have discussed the ramifications of chronic pain from the occipital area. We explained to the patient that a trial of medications, which are helpful with nerve types of pain could be considered. The patient will try Lyrica 50 mg and we will tolerate this to a level which is therapeutic. Hopefully, the patient will then find improvement in his pain condition. The patient was taken to the procedure area. Risks and benefits of the procedure were discussed. They include but are not limited to infection, increased muscle soreness, headache, bleeding, worsening of pain, and the [place] [address] PAIN MANAGEMENT CONSULTATION Name: JON MOTT Room: [facility]#: [id number] Admission: 11/21/18 Attend Phys: Jennifer Gonzales MD Discharge: Date of : 47 Report #: [id number] PROCEDURE NOTE: The patient was taken to the procedure area. He was placed in prone position. His neck was sterilely prepped on the right side using a chlorhexidine solution and allowed to dry. The right occipital area was identified. The correct greater occipital nerve was identified. This area was then anesthetized with 0.5% bupivacaine and injected with a total of 7 mL of 0.5% bupivacaine and 40 mg triamcinolone. The patient tolerated the procedure well. He remained in the Pain Clinic for an appropriate amount of time. He will call us if he has any concerns. We would like to thank you for letting us participate in his care. We hope he continues to improve. By: [id number]. Alex Gonzales MD /nt
== END | disposition home or self-care (01) ==
LOC: M.PC 11-12 12:40
DX: M54.81 Occipital neuralgia (principal); G89.29 Other chronic pain; M25.521 Pain in right elbow; M25.522 Pain in left elbow; M81.0 Age-related osteoporosis without current pathological fracture; F17.210 Nicotine dependence, cigarettes, uncomplicated; Z87.19 Personal history of other diseases of the digestive system; Z79.899 Other long term (current) drug therapy; Z98.890 Other specified postprocedural states

== ENCOUNTER → 2018-12-24 | Outpatient (CLI) | payer OTHER ==
--- NOTE | 2018-12-25 14:29 | PAINCON ---
[address] [address] PAIN MANAGEMENT CONSULTATION Name: JACQUEJONNAJON W Room: [facility] Khris#: [id number] Admission: 12/24/18 Attend Phys: Jennifer Gonzales MD Discharge: Date of : 47 Report #: [id number] THIS REPORT FOR: //name// CC: Tucker Gonzales DATE OF SERVICE: 12/24/2018 CHIEF COMPLAINT: Return of the occipital neuralgia, headache. HISTORY: The patient is a 73-year-old gentleman, who has been followed in the pain clinic because of occipital pain. He has undergone occipital injections. His pain primarily is on the left side. He has had some concern as to whether or not this pain might be mediated by some inner ear problem. He receives generally 100% relief after the injection. He then starts to note some increasing pain. He notes his pain can be increased by pressure in the occipital area. Pressure on the headrest can be problematic. This can cause excruciating pain and recurrence of his discomfort. He finds that the tramadol can be helpful, but he is not taking much of that at this juncture. He finds that Lyrica was prescribed, but did not get that medication filled. Overall, he feels about 100% improved with the injection and pain starts to wane and becomes about 50% effective over time. He has returned today with the hopes of undergoing an another occipital nerve block. CURRENT MEDICATIONS: Prednisone 5 mg, Fosamax 70 mg weekly, Tylenol 500 mg t.i.d., folic acid, vitamin D, Mobic has been used in the past, amitriptyline has been used, and Excedrin caplets. ALLERGIES: No known drug allergies. PAIN CLINIC ASSESSMENT AND PQRS: 1. The patient is not being treated for osteoarthritis. He does not have a history of rheumatoid arthritis. He did have some involvement of arthritic change in his elbow. 2. Pain intensity is 5/10. 3. Fall history: The patient has not fallen in the last 3 months. 4. Hypertension. The patient is not being treated for hypertension. 5. Opioids greater than 6 weeks. The patient is not taking opioid medications on a regular basis. 6. Risk assessment tool, low for opioids. 7. Functional assessment tool. 8. Recreational drug use. The patient denies use of recreational drugs. 9. Tobacco: The patient admits to smoking for 50 years. He continues to smoke 1 pack of cigarettes per day. 10. Alcohol. The patient does not drink alcoholic beverages [place] [address] PAIN MANAGEMENT CONSULTATION Name: JON MOTT Zainab Room: [facility]#: [id number] Admission: 12/24/18 Attend Phys: Jennifer Gonzales MD Discharge: Date of : 49 Report #: [id number] PHYSICAL EXAMINATION: GENERAL: The patient is a well-developed, well-nourished white male. He appears his stated age. He is alert and oriented x 3. His affect is appropriate. Speech is fluent. HEENT: Normocephalic, atraumatic. Extraocular eye muscles intact. Sclerae nonicteric. Mucous membranes are moist. NECK: Without adenopathy or JVD. The patient has some pain and discomfort in the right occipital area. Palpation in this area does reproduce the patient's pain and discomfort. He notes palpation in this area can significantly increase his pain. If he rests his head against the headrest, this can cause worsening of occipital neuralgic pain. NECK: Without adenopathy or JVD. HEART: Regular rate. ABDOMEN: Nontender. Bowel sounds present. MUSCULOSKELETAL: Upper extremity is 5-/5 for the major muscle groups in the upper extremity. Lower extremity, the patient is without significant scoliosis, kyphosis, or lordosis. IMPRESSION: 1. Right occipital neuralgia. 2. History of tobacco use, 50 years. 3. Osteoporosis. 4. History of gastritis and gastrointestinal bleeding. 5. Tumor/nodule removed from the right leg. 6. Onset of increased pain and discomfort in his elbow. 7. History of torn tympanic membrane in the 1970s while in [place]. RECOMMENDATIONS: We have discussed treatment options with the patient. At this juncture, he continues to have occipital pain. It improves with occipital nerve block. He has returned today with a desire to undergo another block. He finds that this is helpful. It is not last as long as he would like, but overall he feels that this is reasonable at this point and would like to continue with an injection today. 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 We would like to thank you for letting us to participate in his care. We hope he continues to improve. <ELECTRONICALLY SIGNED> By: Jennifer Gonzales MD 12/25/18 [id number]. Alex Gonzales MD /PMT
== END | disposition home or self-care (01) ==
LOC: M.PC 05:12
DX: M54.81 Occipital neuralgia (principal); G89.29 Other chronic pain; M81.0 Age-related osteoporosis without current pathological fracture; F17.210 Nicotine dependence, cigarettes, uncomplicated; Z87.19 Personal history of other diseases of the digestive system; Z98.890 Other specified postprocedural states; Z79.899 Other long term (current) drug therapy